=== PATIENT | female | born 1975 ===

== ENCOUNTER 2025-05-28 14:50 | Emergency (ER) | payer MEDICARE, SELFPAY ==
[2025-05-28 15:23] VITALS: BP 119/57
--- NOTE | 2025-05-28 17:15 | ED.GENMED ---
History of Present Illness
General
Chief Complaint: Cold/Flu/URI Symptoms
Source: patient
Exam Limitations: none
Time Seen by Provider: 05/28/25 16:46
Nursing documentation reviewed up to this point in time: agreed with
History of Present Illness
History of Present Illness:
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 Patient says that she
has been dealing with mold in her house along the floor boards and carpets for 2 months. She says that she has been battling with her landlord to have the area cleaned and has thus far been unsuccessful. She says that that she and her children
have had allergic type symptoms and over the past few days she feels they have been a bit worse which prompted her to finally bring them all to the emergency room for assessment. She describes that she has been having sneezing, congestion, mild
sore throat and coughing. She has felt more fatigued recently. No fever or chills or any other acute complaints noted.
Review of Systems
Review of Systems
All Other Systems: ROS reviewed and negative except as documented in HPI and ROS
Constitutional: Reports fatigue; Denies fever or chills
EENT: Reports sore throat and runny nose
Respiratory: Reports cough; Denies trouble breathing
Cardiac: Denies chest pain
ABD/GI: Denies abdominal pain or vomiting
Skin: Denies rash
Neurological: Denies dizzy or headache
Phy Exam
Physical Exam
Physical Exam:
General: Awake, alert, oriented x3; no acute distress
Head: Normocephalic, atraumatic
Eyes: Conjunctiva normal, patient has irregular pupil on the left chronically she says
Nose: No swelling/erythema of the turbinates, no epistaxis
Throat: Airway intact, handling secretions, no tonsillar erythema or exudate, midline uvula, no erythema of the oropharynx
Neck: Trachea midline, supple without meningismus
Lungs: Clear to auscultation bilaterally, no wheezing, rales, rhonchi
Heart: Regular rate and rhythm, no murmurs, gallops, or rubs
Neuro: No gross deficits
Skin: no rash
Extremities: Warm and well-perfused
Scores
Heart Failure Risk
Heart Failure Risk Score: Not Applicable
Heart Score for Chest Pain Patients
STEMI patient?: Not applicable
Withdrawal Assessment of Alcohol
Withdrawal Assessment Completed?: Not applicable
Course
Orders/Labs/Results
Orders:
Orders
05/28/25 16:48
CR Chest - 2 Views Urgent
Comment:
Reason For Exam: cough
05/28/25 17:31
COVID-19 Antigen Urgent
Source: Nasal Swab
Influenza A+B Rapid Molecular Urgent
ANGY Source: Nasal Swab
Specimen Description:
RSV [Respiratory Syncytial Virus] Urgent
ANGY Source: Nasal Swab
Specimen Description:
Date Specimen was Collected: 05/28/25
Time Specimen was Collected: 16:54
Vital Signs
Initial and Last Documented VS:
Initial Vital Signs
Temp Pulse Resp BP Pulse Ox
37.1 C 63 18 119/57 98
05/28/25 15:23 05/28/25 15:23 05/28/25 15:23 05/28/25 15:23 05/28/25 15:23
Last Documented Vital Signs
Temp Pulse Resp BP Pulse Ox
37.1 C 63 20 119/57 98
05/28/25 15:23 05/28/25 15:23 05/28/25 15:23 05/28/25 15:23 05/28/25 17:21
MDM/Problems Addressed
Differential Diagnosis Includes:
Allergic rhinitis, pneumonia, asthma, viral syndrome, GERD
MDM/Problems Addressed:
50-year-old female presents with URI type symptoms as described above�acute on chronic in the setting of recent mold in the household. She is working with [employer] to try and ameliorate presence of mold in the household. Fortunately vital signs
are normal and physical exam is benign. Plan to check chest x-ray to rule out pneumonia, viral swabs. I had a long discussion with the patient about conservative measures including cleaning, dehumidifier and good ventilation in the household while
working with the [employer] for more definitive action on presence of mold. Reassess as the above.
X-ray reviewed independently by me shows no acute disease. Viral swabs positive for RSV�possible that this accounts for worsening of symptoms over the past few days. Stable for discharge follow-up with primary doctor. Spoke about conservative
measures and return precautions. All questions answered.
*Radiology
Radiology exam reviewed: preliminary read by ED provider
*Pulse Oximetry
SaO2: 98
Oxygen Mode of Delivery: Room air
Patient hypoxic: no (98%)
*Critical Care Note
Total Time (30-74mins, 75-104mins- exclusive of procedures): Not Applicable
Data Reviewed
Source: patient
ED Attending Note
-
Portions of this chart may have been created with voice recognition software.� Occasional wrong word or��sound alike� substitutions may have occurred due to the inherent limitations of voice recognition software.
Discharge Plan
Departure
Patient Disposition: Home (Routine Discharge)
Date of Disposition: 05/28/25
Time of Disposition: 18:17
Patient with high blood pressure during this ER visit?: No
Discharge Problem:
Allergic rhinitis caused by mold, Respiratory syncytial virus (RSV)
Instructions: Environmental allergies in adults
Prescriptions:
New
fluticasone propionate 50 mcg/actuation spray,suspension
2 spray intranasal DAILY Qty: 16 0RF
cetirizine 10 mg tablet
10 mg PO DAILY Qty: 30 0RF
Referrals:
UNKNOWN - PT DOES,NOT KNOW [Family Provider]
Activity Restrictions/Additional Instructions:
You came to the emergency room in for evaluation of symptoms and concern for mold exposure. You were prescribed medication to help control symptoms. You should make sure that you are ventilating your house using fans and open windows as best you
can. You should clean any visible mold. Having a dehumidifier in the house can help to prevent further mold. You should continue to work with your landlord to have mold definitively treated. You should follow-up with your primary care doctor as
soon as possible for continued care after your ER visit.
Thank you for visiting the Emergency Department at [facility].
1. Please schedule a follow up appointment as directed. Call first thing tomorrow morning to make an appointment.
2. If indicated, please take your medications as instructed and indicated on discharge paperwork.
3. If any of your symptoms do not improve, or persist, or become more severe within 6-12 hours, please return to the emergency department for further care.
4. Please return to the emergency department if you develop a headache, neck pain/stiffness, fever greater than 100.4F, chest pain, shortness of breath, persistent nausea, vomiting, slurred speech, difficulty walking, numbness/tingling, weakness,
signs of infection or any other symptoms that are worrisome to you.
Please call [phone] if you have any questions.
Interventions
Interventions:
*ED COVID-19 Vaccine History Last Done: 05/28/25 15:23
ED- Pulmonary Assessment Last Done: 05/28/25 17:35
Discharge Date and Time
Print Language: CONGOLESE
[2025-05-28 18:01] LABS: COVID-19 Antigen Negative (Negative)
== END 2025-05-28 18:33 | disposition home or self-care (01) ==
LOC: EMR 14:50
PROVIDERS: EMERGENCY PHYSICIAN Emergency Medicine
DX: J30.89 Other allergic rhinitis (principal); B97.4 Respiratory syncytial virus as the cause of diseases classified elsewhere; Z11.52 Encounter for screening for COVID-19
CPT/HCPCS: 99284; 71046; 87502; 87807; 87811